=== PATIENT | female | born 1970 | race Hispanic/Latino ===

== ENCOUNTER 2017-02-13 08:45 | Emergency (ER) | payer OTHER ==
[2017-02-13 08:58] VITALS: PULSE 78
[2017-02-13 08:59] VITALS: BMI 22.4
[2017-02-13] MEDS ORDERED: Oxycodone/Acetaminophen 5/325 mg Tab PO STA (09:32)
--- NOTE | 2017-02-13 09:37 | ED PDOC ---
Upper Extremity Pain/Injury Time Seen by Provider: 02/13/17 09:09 Chief Complaint (Nursing): Upper Extremity Problem/Injury Chief Complaint (Provider): Right shoulder and upper arm pain History Per: Patient History/Exam Limitations: no limitations Onset/Duration Of Symptoms: Days (x2 days) Current Symptoms Are (Timing): Still Present Additional Complaint(s): 46 y/o female presents to the emergency department with a complaint of on/off right shoulder pain that radiates to the upper arm x2 days. Reports experiencing similar episode 9 days ago, visited primary care doctor twice since , given 2 shots for steroid, prescribed Relafen (twice daily by mouth), and topical medication with no relief of pain. Last dose of Relafen was around 6am this morning. Denies trauma, paresthesias, or weakness. Of note, patient had a magnetic resonance imaging (MRI) completed on 02/08/2017 which shows diffuse tendonitis. Past Medical History Reviewed: Historical Data, Nursing Documentation, Vital Signs Vital Signs: Last Vital Signs Temp 98.8 F 02/13/17 08:58 Pulse 78 02/13/17 08:58 Resp 16 02/13/17 08:58 BP 124/65 02/13/17 08:58 Pulse Ox 99 02/13/17 08:58 - Medical History PMH: No Chronic Diseases - Family History Family History: States: Unknown Family Hx - Social History Current smoker - smoking cessation education provided: No Alcohol: None Drugs: Denies - Home Medications Home Medications: Ambulatory Orders Medication Instructions Recorded oxyCODONE/Acetaminophen [Percocet 1 tab PO Q6 PRN #10 tab 02/13/17 5/325 mg Tab] - Allergies Allergies/Adverse Reactions: Allergies Allergy/AdvReac Type Severity Reaction Status Date / Time No Known Allergies Allergy Verified 02/13/17 09:14 Review of Systems ROS Statement: Except As Marked, All Systems Reviewed And Found Negative Musculoskeletal: Positive for: Shoulder Pain (Right), Arm Pain (Right). Negative for: Other (Trauma) Neurological: Negative for: Weakness (or paresthesias) Physical Exam - Reviewed Nursing Documentation Reviewed: Yes Vital Signs Reviewed: Yes - Physical Exam Appears: Positive for: Non-toxic, In Acute Distress (Moderate) Head Exam: Positive for: ATRAUMATIC, NORMAL INSPECTION, NORMOCEPHALIC Skin: Positive for: Normal Color, Warm, Dry Neck: Positive for: Normal, Supple Cardiovascular/Chest: Positive for: Regular Rate, Rhythm. Negative for: Murmur Respiratory: Positive for: Normal Breath Sounds. Negative for: Accessory Muscle Use, Respiratory Distress Extremity: Positive for: Tenderness (To the right upper lateral shoulder radiating down to the upper arm), Capillary Refill (Intact. 2+ radial pulses with regular sensation. 5/5 muscle strength), Other (Decreased ROM of shoulder secondary to pain). Negative for: Normal ROM Neurologic/Psych: Positive for: Alert, Oriented (x3) - ECG O2 Sat by Pulse Oximetry: 99 (RA) Pulse Ox Interpretation: Normal Medical Decision Making Medical Decision Making: Time: 09:32 Initial Impression: Right shoulder pain radiating down to the upper arm Initial Plan: --Urine Preg --Percocet 5/325 mg PO --Reevaluation Scribe Attestation: Documented by Sarita Rollins, acting as a scribe for Barbara Terry MD. Provider Scribe Attestation: All medical record entries made by the Scribe were at my direction and personally dictated by me. I have reviewed the chart and agree that the record accurately reflects my personal performance of the history, physical exam, medical decision making, and the department course for this patient. I have also personally directed, reviewed, and agree with the discharge instructions and disposition. Disposition - Clinical Impression Clinical Impression: Tendinitis of right shoulder - Disposition Referrals: Deion Matthews MD [Staff Provider] - Disposition: Routine/Home Disposition Time: 09:59 Condition: IMPROVED Prescriptions: oxyCODONE/Acetaminophen [Percocet 5/325 mg Tab] 1 tab PO Q6 PRN #10 tab PRN Reason: Pain, Severe (8-10) Instructions: Tendinitis (ED) Forms: [employer] (Greek)
[2017-02-13 10:14] VITALS: BP 128/78; RESP 19; TEMP 97.8
[2017-02-18 10:47] VITALS: O2SAT 99
== END 2017-02-13 10:14 | disposition home or self-care (01) ==
LOC: H.ER 08:45
DX: M75.91 Shoulder lesion, unspecified, right shoulder (principal)